=== PATIENT | male | born 1970 | race Caucasian/White ===

== ENCOUNTER 2020-09-15 16:47 | Emergency (ER) | payer MEDICAID, OTHER ==
[~2020-09-15] VITALS: Ht 180.3 cm; Wt 74.8 kg
[2020-09-15 16:47] VITALS: BP 125/83
[2020-09-15] MEDS ORDERED: ASPirin 81 mg TAB PO ONE (17:15)
[2020-09-15 19:25] LABS: Basophils # (auto) 0 10 ^3/uL (0-0.2); Basophils % (auto) 0.7 % (0.0-2.0); Eosinophils # (auto) 0.2 10 ^3/uL (0-0.8); Eosinophils % (auto) 3.6 % (0.0-7.0); Hematocrit 41.2 % (41.0-53.0); Hemoglobin 13.9 g/dL (13.5-17.5); Lymphocytes # (auto) 1.4 10 ^3/uL (0.4-5.4); Lymphocytes % (auto) 26.3 % (10.0-50.0); Mean Corpuscular Hemoglobin 30.2 pg (28.0-32.0); Mean Corpuscular Hgb Conc. 33.8 g/dL (32.0-36.0); Mean Corpuscular Volume 89.4 fL (80.0-100.0); Monocytes # (auto) 0.5 10 ^3/uL (0-1.3); Monocytes % (auto) 9.7 % (0.0-12.0); Neutrophils # (auto) 3.3 10 ^3/uL (1.6-8.6); Neutrophils % (auto) 59.7 % (37.0-80.0); Red Blood Cells 4.61 10^6/uL (4.5-5.90); White Blood Cell 5.5 10^3/uL (4.4-10.8)
[2020-09-15 19:43] LABS: Albumin 3.9 g/dL (3.4-5.0); Anion Gap 2 (5-15); Blood Urea Nitrogen 23 mg/dL (7-18); Calcium 8.9 mg/dL (8.5-10.1); Carbon Dioxide 29 mmol/L (21-32); Chloride 108 mmol/L (98-107); Glucose 73 mg/dL (74-106); Potassium 4.4 mmol/L (3.5-5.1); Sodium 139 mmol/L (136-145)
[2020-09-15 19:49] LABS: Alanine Aminotransferase 26 U/L (16-61); Alkaline Phosphatase 50 U/L (45-117); Aspartate Aminotransferase 21 U/L (15-37); BUN/Creatinine Ratio 20.5; Bilirubin, Total 1.4 mg/dL (0.2-1.0); GFR African American 89 mL/min; GFR Non-African American 74 mL/min; Total Protein 7.4 g/dL (6.4-8.2)
== END 2020-09-15 20:33 | disposition home or self-care (01) ==
LOC: ER 16:47
DX: R07.89 Other chest pain (principal)
CPT/HCPCS: 36415; 71046; 80053; 84484; 85025; 85379; 93005

== ENCOUNTER 2021-06-24 18:38 | Emergency (ER) | payer MEDICAID ==
[~2021-06-24] VITALS: Ht 180.3 cm; Wt 74.8 kg
[2021-06-24 20:57] VITALS: BP 129/90
== END 2021-06-24 21:21 | disposition home or self-care (01) ==
LOC: ER 18:39
DX: S83.92XA Sprain of unspecified site of left knee, initial encounter (principal); J45.909 Unspecified asthma, uncomplicated; L21.8 Other seborrheic dermatitis; M71.38 Other bursal cyst, other site; F17.210 Nicotine dependence, cigarettes, uncomplicated; Z76.0 Encounter for issue of repeat prescription; Z86.2 Personal history of diseases of the blood and blood-forming organs and certain disorders involving the immune mechanism; X50.1XXA Overexertion from prolonged static or awkward postures, initial encounter; Y93.89 Activity, other specified; Y92.89 Other specified places as the place of occurrence of the external cause; Y99.8 Other external cause status
CPT/HCPCS: 29505; 73562

== ENCOUNTER 2022-05-15 19:32 | Emergency (ER) | payer MEDICAID ==
[~2022-05-15] VITALS: Ht 180.3 cm; Wt 75.0 kg
[2022-05-15] MEDS ORDERED: CYCL-837 PO (23:12)
[2022-05-15] MEDS ORDERED: ERY05OO OP (23:12)
[2022-05-15] MEDS ORDERED: IBUP800T27 PO (23:12)
[2022-05-15 23:15] VITALS: BP 140/99
[2022-05-15] MEDS ORDERED: KETOROLAC TROMETH 60MG/2ML VIAL IM ONE (23:15)
== END 2022-05-15 23:26 | disposition home or self-care (01) ==
LOC: ER 19:33
DX: H10.9 Unspecified conjunctivitis (principal); M54.50 Low back pain, unspecified; J45.909 Unspecified asthma, uncomplicated; F17.210 Nicotine dependence, cigarettes, uncomplicated; Z79.2 Long term (current) use of antibiotics; Z79.899 Other long term (current) drug therapy
CPT/HCPCS: 96372; 99283; J1885

== ENCOUNTER 2022-07-26 01:25 | Emergency (ER) | payer MEDICAID ==
[~2022-07-26] VITALS: Ht 180.3 cm; Wt 76.5 kg
[~2022-07-26 01:25] MED LIST: CYCL-837 PO; ERY05OO OP; IBUP800T27 PO
[2022-07-26] MEDS ORDERED: BENZOCAINE (DENTAL) 20 % SPRAY 60ML MT ONE (02:45)
[2022-07-26] MEDS ORDERED: IBUP800T27 PO (02:47)
[2022-07-26] MEDS ORDERED: MOXI0.5S EACHEYE (02:47)
[2022-07-26] MEDS ORDERED: AMOX-277 PO (02:47)
[2022-07-26 02:58] VITALS: BP 136/99
== END 2022-07-26 03:02 | disposition home or self-care (01) ==
LOC: ER 01:25
DX: K04.7 Periapical abscess without sinus (principal); H10.33 Unspecified acute conjunctivitis, bilateral; J45.909 Unspecified asthma, uncomplicated; Z87.442 Personal history of urinary calculi; Z88.1 Allergy status to other antibiotic agents

== ENCOUNTER 2023-11-08 14:07 | Emergency (ER) | payer MEDICAID ==
[~2023-11-08] VITALS: Ht 180.3 cm; Wt 73.6 kg
[~2023-11-08 14:07] MED LIST changes: +AMOX875T4 PO; +IBUP-1456 PO; -IBUP800T27 PO; +MOXI0.5S EACHEYE
[2023-11-08 14:52] VITALS: BP 142/85; PULSE 79; RESP 18; TEMP 97.8; O2SAT 96
[2023-11-08] MEDS ORDERED: NEOM0.1O7 OP (15:37)
== END 2023-11-08 15:55 | disposition home or self-care (01) ==
LOC: ER 14:07
DX: H01.006 Unspecified blepharitis left eye, unspecified eyelid (principal); J45.909 Unspecified asthma, uncomplicated; F17.210 Nicotine dependence, cigarettes, uncomplicated; Z87.442 Personal history of urinary calculi

== ENCOUNTER 2024-08-04 22:21 | Emergency (ER) | payer MEDICAID ==
[~2024-08-04] VITALS: Ht 180.3 cm; Wt 75.0 kg
[~2024-08-04 22:21] MED LIST changes: +NEOM0.1O7 OP
--- NOTE | 2024-08-04 23:42 | ED.PDOC ---
SOB-HPI HPI Comments This is a 54-year-old male asthmatic patient presents to the ED chief complaint increase in wheezing and cough over the past 2 days. Patient states he usually uses his albuterol inhaler however has run out does not have an appointment with his PCP until tomorrow. Patient states increasing wheezing and mucus production. Denies fevers, chills, difficulty breathing, chest pain, shortness of breath. Chief Complaint: Cough Time Seen by MD: 22:37 Primary Care Provider: NONE Reviewed notes: Nurses Notes, Medications, Allergies Information Source: Patient Mode of Arrival: Ambulatory Past Medical History PAST MEDICAL HISTORY: Asthma, Kidney Stones Surgical History: Denies all surgeries Family History Family History: Unknown Social History Smoker: Cigarettes, Less Than 1 Pack/Day Alcohol: Denies ETOH Use Drugs: Marijuana Lives In: Home Constitutional: denies: chills, diaphoresis, fatigue, fever, malaise, sweats, weakness, others EENTM: denies: blurred vision, double vision, ear bleeding, ear discharge, ear drainage, ear pain, ear ringing, eye pain, eye redness, hearing loss, mouth pain, mouth swelling, nasal discharge, nose bleeding, nose congestion, nose pain, photophobia, tearing, throat pain, throat swelling, voice changes, others Respiratory: reports: cough, wheezing; denies: hemoptysis, orthopnea, SOB at rest, shortness of breath, SOB with excertion, stridor, others Cardiovascular: denies: chest pain, dizzy spells, diaphoresis, Dyspnea on exertion, edema, irregular heart beat, left arm pain, lightheadedness, palpitati ons, PND, syncope, others Genitourinary: denies: burning, dysuria, flank pain, frequency, hematuria, incontinence, penile discharge, penile sore, pain, testicle pain, testicle swelling, urgency, others Neurological: denies: dizziness, fainting, headache, left sided numbness, left sided weakness, numbness, paresthesia, pre-existing deficit, right sided numbness, right sided weakness, seizure, speech problems, tingling, tremors, weakness, others Musculoskeletal: denies: back pain, gout, joint pain, joint swelling, muscle pain, muscle stiffness, neck pain, others Integumetry: denies: bruises, change in color, change in hair/nails, dryness, laceration, lesions, lumps, rash, wounds, others Allergic/Immunocompromised: denies: Difficulty Healing, Frequent Infections, Hives, Itching, others Hematologic/Lymphatic: denies: anemia, blood clots, easy bleeding, easy bruising, swollen glands, others Endocrine: denies: excessive hunger, excessive sweating, excessive thirst, excessive urination, flushing, intolerance to cold, intolerance to heat, unexplained weight gain, unexplained weight loss, others Psychiatric: denies: anxiety, bipolar disorder, depression, hopeless, panic disorder, schizophrenia, sleepless, suicidal, others Physical Exam General Appearance: No Apparent Distress, Normal HEENT: Normal ENT Inspection, Pharynx Normal, TMs Normal Neck: Full Range of Motion, Non-Tender Respiratory: Chest Non-Tender, Expiration (Bilateral lower lobes), No Accessory Muscle Use, No Respiratory Distress, Wheezing Cardiovascular: No Edema, No JVD, No Murmur, No Gallop, Normal Peripheral Pulses, Regular Rate/Rhythm Breast Exam: Deferred Gastrointestinal: No Organomegaly, Non Tender, No Pulsatile Mass, Normal Bowel Sounds, Soft Genitalia: Deferred Pelvic: Deferred Rectal: Deferred Extremities: Normal capillary refill, Normal inspection, Normal range of motion, Non-tender, No pedal edema Musculoskeletal : Apperance: Normal Neurologic: Alert, insurance counsel II-XII nml as Tested, No Motor Deficits, Normal Affect, Normal Mood, No Sensory Deficits Cerebellar Function: Normal Reflexes: Normal Skin: Dry, Normal Color, Warm Lymphatic: No Adenopathy Was a procedure done? Was a procedure done?: No Differential Dx Differential Diagnosis: Asthma X-Ray, Labs, Meds, VS Vital Signs Date Time Temp Pulse Resp B/P (MAP) Pulse Ox O2 Delivery O2 Flow Rate FiO2 08/04/24 22:40 98.1 84 16 128/78 (95) 95 Current Medications Medications (Trade) Dose Ordered Sig/Patricia Route Start Time Stop Time Status Last Admin Albuterol (Ventolin Medneb) 2.5 mg ONCE ONCE NEB 08/04/24 23:30 08/04/24 23:31 DC 08/04/24 23:46 Ipratropium [place] (Atrovent Medneb) 0.5 mg ONCE ONCE NEB 08/04/24 23:30 08/04/24 23:31 DC 08/04/24 23:46 Dexamethasone Sodium Phosphate (Decadron Injection) 10 mg ONCE ONCE IM 08/04/24 23:30 08/04/24 23:31 DC 08/04/24 23:43 X-Ray, Labs, Meds, VS Comment Atrovent and Ventolin x1 neb treatment. Patient tolerated well with good results lung sounds clear equal in the bilateral. Patient requesting discharge at this time. Script albuterol, Tessalon Perles, and Z-Carlos Eduardo. Advised to follow up with his PCP tomorrow for further refills. ER return precautions given patient indicated understanding agrees with discharge plan of care. Time of 1ST Reevaluation: 00:09 Reevaluation 1ST: Improved Patient Education/Counseling: Diagnosis, Treatment, Prognosis, Need For Follow Up Family Education/Counseling: No Family Present Departure 1 Departure Time of Disposition: 00:09 Impression: Primary Impression: Asthma Qualified Codes: J45.40 - Moderate persistent asthma, uncomplicated Additional Impression: Medication refill Disposition: HOME / SELF CARE / HOMELESS Condition: Stable e-Prescriptions Benzonatate (Benzonatate) 100 Mg Cap 1-2 CAP PO Q4HR PRN for 10 Days, #40 CAP Prov: ZEESHAN LUO 08/05/24 Albuterol Sulfate (VENTOLIN MDI) 90 Mcg Ih 180 MCG IN Q6HP PRN for 30 Days, #1 INHALER Prov: ZEESHAN LUO 08/05/24 Azithromycin (Azithromycin) 250 Mg Tab 250 MG PO DAILY MDD 500 for 5 Days, #6 TAB 0 Refills 2 TABLETS ORALLY ON DAY ONE, THEN 1 TABLET ORALLY DAILY FOR 4 DAYS Prov: ZEESHAN LUO 08/05/24 Discharged With: Self Critical Care Note Critical Care Time?: No Stability Stability form required: No Heart Score Heart Score: Heart Score Response (Comments) Value History N/A 0 EKG N/A 0 Age 45-64 1 Risk Factors N/A 0 Troponin N/A 0 Total 1 ZEESHAN LUO Aug 04, 2024 23:42
[2024-08-04] MEDS: DexAMETHasone SOD PHOS 10MG/1ML VIAL INJ IM ONE (23:43)
[2024-08-04] MEDS: ALBUTEROL SULF 2.5 MG/0.5ML(0.5%) NEB SOLN NEB ONE (23:46)
[2024-08-04] MEDS: IPRATROPIUM BROM 0.5 MG/2.5ML INH SOL NEB ONE (23:46)
[2024-08-05] MEDS ORDERED: AZIT-43 PO (00:11)
[2024-08-05] MEDS ORDERED: BENZ100C97 PO (00:11)
[2024-08-05] MEDS ORDERED: ALBUAER3 IN (00:11)
[2024-08-05 00:15] VITALS: BP 125/85; PULSE 79; RESP 18; TEMP 98.1; O2SAT 96
== END 2024-08-05 00:40 | disposition home or self-care (01) ==
LOC: ER 22:21
DX: J45.909 Unspecified asthma, uncomplicated (principal); F17.210 Nicotine dependence, cigarettes, uncomplicated; Z76.0 Encounter for issue of repeat prescription
CPT/HCPCS: 94640; 96372; 99283; J1100

== ENCOUNTER 2024-11-01 14:29 | Emergency (ER) | payer MEDICAID ==
[~2024-11-01] VITALS: Ht 175.3 cm; Wt 71.7 kg
[~2024-11-01 14:29] MED LIST changes: +AZIT-43 PO
[2024-11-01] MEDS: IPRATROPIUM BROM 0.5 MG/2.5ML INH SOL NEB ONE (15:13)
[2024-11-01] MEDS: ALBUTEROL SULF 2.5 MG/0.5ML(0.5%) NEB SOLN NEB ONE (15:13)
--- NOTE | 2024-11-01 15:22 | DVH ---
XY CHEST PORTABLE, HISTORY: R chest pain cough sob COMPARISON: None None TECHNICAL DATA: 1 view of the chest was obtained. FINDINGS: Lines and tubes: None Cardiomediastinal silhouette: normal Pulmonary vasculature: normal Lung expansion: normal Lung airspace: normal Lung interstitium: normal Pleura: normal Pneumothorax: no Bones: Unremarkable Other: no IMPRESSION: No acute intrathoracic abnormality.
[2024-11-01] MEDS: methylPREDNISolone SOD SUCC 125 MG/2 ML VL IV ONE (15:23)
[2024-11-01] MEDS: KETOROLAC TROMETH 30 MG/ML 1ML VIAL IV ONE (15:23)
[2024-11-01 15:25] LABS: Basophils # (auto) 0.1 10 ^3/uL (0-0.2); Basophils % (auto) 0.9 % (0.0-2.0); Eosinophils # (auto) 0.2 10 ^3/uL (0-0.8); Eosinophils % (auto) 2.8 % (0.0-7.0); Lymphocytes # (auto) 1.1 10 ^3/uL (0.4-5.4); Lymphocytes % (auto) 18.6 % (10.0-50.0); Mean Corpuscular Hemoglobin 29.2 pg (28.0-32.0); Mean Corpuscular Hgb Conc. 33.4 g/dL (32.0-36.0); Mean Corpuscular Volume 87.3 fL (80.0-100.0); Monocytes # (auto) 0.4 10 ^3/uL (0-1.3); Monocytes % (auto) 7.7 % (0.0-12.0); Nucleated Red Blood Cells % 0.1 %; Platelet Count (auto) 172 10^3/uL (140-450); Red Blood Cells 5.15 10^6/uL (4.5-5.90); Red Cell Distribution Width 14.1 % (11.8-14.3); White Blood Cell 5.7 10^3/uL (4.4-10.8)
[2024-11-01 15:26] VITALS: PULSE 85; RESP 17; O2SAT 96
[2024-11-01 15:28] LABS: Potassium 3.6 mmol/L (3.5-5.1); Sodium 142 mmol/L (136-145)
[2024-11-01 15:29] LABS: Anion Gap 7 (5-15); Calcium 9.8 mg/dL (8.7-10.4); Carbon Dioxide 25 mmol/L (20-31); Chloride 110 mmol/L (98-107)
[2024-11-01 15:34] LABS: BUN/Creatinine Ratio 14.8 (10.0-20.0); Blood Urea Nitrogen 20 mg/dL (9-23); Glucose 125 mg/dL (74-106)
--- NOTE | 2024-11-01 15:34 | ED.PDOC ---
SOB-HPI HPI Comments 54-year-old male brought in by self complaining of productive cough, chest congestion, chills and fatigue for the last 2-3 days, associated with right- sided achy chest pain. He denies any fever, nausea, vomiting, diaphoresis or edema. Denies any sick contacts. Chief Complaint: Chest Pain Time Seen by MD: 14:33 Primary Care Provider: NONE Reviewed notes: Nurses Notes, Medications, Allergies Information Source: Patient Mode of Arrival: Ambulatory Severity: Moderate Timing: Days Duration: Since onset, Days Context: At Rest, Spontaneous Onset PE Risk Factors: None History of: Asthma Associated Signs and Symptoms: Cough Quality: Aching Radiation: No Radiation Location: Chest (R) If cough with SOB: Non-Productive Past Medical History PAST MEDICAL HISTORY: Asthma, HTN Past Medical History (Other): Recently diagnosed MS Surgical History: Denies all surgeries Family History Family History: Reviewed,noncontributory to illness, Unknown Social History Smoker: Cigarettes, Less Than 1 Pack/Day Alcohol: Denies ETOH Use Drugs: Denies Drug Use Lives In: Home All Other Systems: Reviewed and Negative (Comprehensive systems review obtained and negative except for what is stated in the HPI.) Physical Exam General Appearance: No Apparent Distress HEENT: PERRL/EOMI Neck: Full Range of Motion, Normal Inspection Respiratory: Lungs Clear, No Accessory Muscle Use, No Respiratory Distress, Normal Breath Sounds Cardiovascular: No Edema, No JVD, Regular Rate/Rhythm Breast Exam: Deferred Gastrointestinal: Non Tender, Soft Genitalia: Deferred Pelvic: Deferred Rectal: Deferred Extremities: Normal inspection, Normal range of motion, Non-tender, No pedal edema Neurologic: Alert (Oriented x4), Normal Affect, Normal Mood, Other (Ambulatory. No gross focal deficit.) Cerebellar Function: NOT DONE Reflexes: NOT DONE Skin: Dry, Normal Color, Warm Lymphatic: NOT DONE EKG EKG : Comments Sinus rhythm, rate 88, normal intervals, normal axis, normal QRS, nonspecific T changes. Was a procedure done? Was a procedure done?: No Differential Dx Differential Diagnosis: Asthma, Bronchitis, CHF, COPD, Pneumonia, URI X-Ray, Labs, Meds, VS Vital Signs Date Time Temp Pulse Resp B/P (MAP) Pulse Ox O2 Delivery O2 Flow Rate FiO2 11/01/24 18:32 98.9 72 18 141/88 (105) 98 98.9 3/7/25 15:41 84 11/01/24 15:27 98 18 96 Room Air 11/01/24 15:27 98.7 98 18 120/86 (97) 96 98.7 11/01/24 15:26 85 17 96 Room Air* 0 21 11/01/24 15:13 22 97 Room Air* 0 21 11/01/24 14:40 88 11/01/24 14:32 98.4 86 18 132/90 (104) 96 Lab Test 11/01/24 15:44 11/01/24 15:13 11/01/24 14:45 11/01/24 14:35 Range/Units Troponin I High Sensitivity < 3 L < 3 L </=54 ng/L Urine Color Yellow Yellow Urine Clarity Clear Clear Urine pH 5.5 5.0-9.0 Urine Specific Moran 1.029 1.001-1.035 Urine Protein Negative Negative Urine Ketones Trace Negative Urine Blood Negative Negative /uL Urine Nitrite Negative Negative Urine Bilirubin Negative Negative Urine Urobilinogen Normal Negative mg/dL Urine Leukocyte Esterase Negative Negative /uL Urine RBC 2 0 - 3 /hpf Urine Microscopic WBC 3 0-3 /HPF Urine Squamous Epithelial Cells Few <5 /hpf Urine Bacteria None seen None Seen /hpf Urine Mucus Few None Seen Urine Glucose Normal Normal mg/dL White Blood Count 5.7 4.4-10.8 10^3/uL Red Blood Count 5.15 4.5-5.90 10^6/uL Hemoglobin 15.0 13.5-17.5 g/dL Hematocrit 45.0 41.0-53.0 % Mean Corpuscular Volume 87.3 80.0-100.0 fL Mean Corpuscular Hemoglobin 29.2 28.0-32.0 pg Mean Corpuscular Hemoglobin Concent 33.4 32.0-36.0 g/dL Red Cell Distribution Width 14.1 11.8-14.3 % Platelet Count 172 140-450 10^3/uL Mean Platelet Volume 9.2 6.9-10.8 fL Neutrophils (%) (Auto) 70.0 37.0-80.0 % Lymphocytes (%) (Auto) 18.6 10.0-50.0 % Monocytes (%) (Auto) 7.7 0.0-12.0 % Eosinophils (%) (Auto) 2.8 0.0-7.0 % Basophils (%) (Auto) 0.9 0.0-2.0 % Neutrophils # (Auto) 4.0 1.6-8.6 10 ^3/uL Lymphocytes # (Auto) 1.1 0.4-5.4 10 ^3/uL Monocytes # (Auto) 0.4 0-1.3 10 ^3/uL Eosinophils # (Auto) 0.2 0-0.8 10 ^3/uL Basophils # (Auto) 0.1 0-0.2 10 ^3/uL Nucleated Red Blood Cells 0.1 % Sodium Level 142 136-145 mmol/L Potassium Level 3.6 3.5-5.1 mmol/L Chloride Level 110 H 98-107 mmol/L Carbon Dioxide Level 25 20-31 mmol/L Anion Gap 7 5-15 Blood Urea Nitrogen 20 9-23 mg/dL Creatinine 1.35 H 0.700-1.30 mg/dL Glomerular Filtration Rate Calc 62 >90 mL/min BUN/Creatinine Ratio 14.8 10.0-20.0 Serum Glucose 125 H 74-106 mg/dL Calcium Level 9.8 8.7-10.4 mg/dL B-Type Natriuretic Peptide 12.93 0-100 pg/mL Influenza Type A Antigen Negative Negative Influenza Type B Antigen Negative Negative SARS-CoV-2 Antigen (Rapid) Negative NEGATIVE Current Medications Medications (Trade) Dose Ordered Sig/Patricia Route Start Time Stop Time Status Last Admin Albuterol (Ventolin Medneb) 5 mg ONCE ONCE NEB 11/01/24 15:00 11/01/24 15:01 DC 11/01/24 15:13 Ipratropium [place] (Atrovent Medneb) 0.5 mg ONCE ONCE NEB 11/01/24 15:00 11/01/24 15:01 DC 11/01/24 15:13 Methylprednisolone Sodium Succinate (Solu Medrol) 125 mg ONCE ONCE IV 11/01/24 15:00 11/01/24 15:01 DC 11/01/24 15:23 Ketorolac Tromethamine (Toradol Injection) 30 mg ONCE ONCE IV 11/01/24 15:00 11/01/24 15:01 DC 11/01/24 15:23 Doxycycline Hyclate 100 ml @ 50 mls/hr ONCE ONCE IV 11/01/24 18:15 11/01/24 19:10 DC 11/01/24 18:29 PROCEDURE(s): CXRP - CHEST PORTABLE REASON: R chest pain cough sob ORDER NUMBER(s): [id number], ACCESSION NUMBER(s): [id number] XY CHEST PORTABLE, HISTORY: R chest pain cough sob COMPARISON: None None TECHNICAL DATA: 1 view of the chest was obtained. FINDINGS: Lines and tubes: None Cardiomediastinal silhouette: normal Pulmonary vasculature: normal Lung expansion: normal Lung airspace: normal Lung interstitium: normal Pleura: normal Pneumothorax: no Bones: Unremarkable Other: no IMPRESSION: No acute intrathoracic abnormality. X-Ray, Labs, Meds, VS Comment 54-year-old male brought in by self complaining of productive cough, chest congestion, chills and fatigue for the last 2-3 days, associated with right- sided achy chest pain Vitals unremarkable Exam unremarkable Rhythm strip independently interpreted by me: Sinus rhythm, rate 86, no ectopy. Chest x-ray IMPRESSION: No acute intrathoracic abnormality. CBC unremarkable, metabolic panel remarkable for creatinine 1.35, BNP normal, troponin negative x2, influenza and COVID negative Patient treated with the following in the ED: Albuterol 5 mg/Atrovent 0.5 mg nebulized, Solu-Medrol 125 mg IV, Toradol 30 mg IV, doxycycline 100 mg IV On re-evaluation, and states pain has improved. Vitals are stable. Oxygen saturation is normal on room air. Hospitalization was considered, however patient had rapid improvement of symptoms with treatment in the ED, and I no longer feel hospitalization is necessary. Patient now appears stable for discharge with close outpatient follow-up with his primary physician. Rx doxycycline, ProAir, prednisone, ibuprofen Time of 1ST Reevaluation: 15:03 Reevaluation 1ST: Unchanged Time of 2ND Reevaluation: 18:29 Reevaluation 2ND: Improved Patient Education/Counseling: Diagnosis, Treatment, Prognosis Family Education/Counseling: Diagnosis, Treatment, Prognosis Departure 1 Departure Time of Disposition: 18:29 Impression: Primary Impression: Acute cough Additional Impressions: Bronchitis Asthma exacerbation Qualified Codes: J45.901 - Unspecified asthma with (acute) exacerbation Disposition: 01 HOME / SELF CARE / HOMELESS Condition: Stable Additional Instructions: Your blood tests including screening tests for heart attack and heart failure were unremarkable. Your chest x-ray was unremarkable. Your EKG was unremarkable. I have prescribed antibiotics for a possible bacterial respiratory infection, oral steroids to decrease lung inflammation, pain medication, and an inhaler refill. Follow-up with your primary doctor in 1-2 days. Return to ER for persistent or worsening symptoms. e-Prescriptions Ibuprofen Micronized (Ibuprofen) 600 Mg Tab 600 MG PO Q6HP PRN, #30 TAB prn fever or pain, take with food Prov: YOSEPH MILLS MD 11/01/24 Albuterol Sulfate (Albuterol Sulfate Hfa) 108 Mcg/Act Aer 2 PUFF IN Q6HP PRN, #1 AER prn difficulty breathing Prov: YOSEPH MILLS MD 11/01/24 Prednisone (Prednisone) 20 Mg Tab 40 MG PO DAILY for 4 Days, #8 MG Prov: YOSEPH MILLS MD 11/01/24 Doxycycline (Monohydrate) (Doxycycline) 100 Mg Tab 100 MG PO BID for 10 Days, #20 TAB Prov: YOSEPH MILLS MD 11/01/24 Discharged With: Self Critical Care Note Critical Care Time?: No Stability Stability form required: No Heart Score Heart Score: Heart Score Response (Comments) Value History Slightly Suspicious 0 EKG Repolarization Disturb 1 Age 45-64 1 Risk Factors 1 or 2 risk factors 1 Troponin Normal limit 0 Total 3 I personally scribed for YOSEPH MILLS MD ([email or web address]) on 11/01/24 at 15:47. Electronically submitted by Se Spears ([email or web address]). YOSEPH MILLS MD Nov 01, 2024 15:34
[2024-11-01 16:02] LABS: COVID19 ANTIGEN SOFIA FIA NEGATIVE (NEGATIVE); Rapid Influenza A Negative (Negative); Rapid Influenza B Negative (Negative)
[2024-11-01 16:16] LABS: Urine Bacteria None Seen /hpf (None Seen)
[2024-11-01 16:32] LABS: Urine Blood Negative /uL (Negative); Urine Clarity Clear (Clear); Urine Color Yellow (Yellow); Urine Mucus FEW (None Seen); Urine Protein, UAD Negative (Negative); Urine Specific Gravity 1.029 (1.001-1.035); Urine Squamous Epithelial Cell FEW /hpf (<5); Urine Urobilinogen Normal (Negative); Urine WBC 3 /HPF (0-3); Urine pH 5.5 (5.0-9.0)
[2024-11-01] MEDS: DOXYCYCLINE 100MG/100ML 100 ML IV ONE (18:29)
[2024-11-01 18:32] VITALS: BP 141/88; PULSE 72; RESP 18; TEMP 98.9; O2SAT 98
[2024-11-01] MEDS ORDERED: PRED20TA2 PO (18:34)
[2024-11-01] MEDS ORDERED: DOXY-346 PO (18:34)
[2024-11-01] MEDS ORDERED: IBUP1TAB5 PO (18:34)
[2024-11-01] MEDS ORDERED: ALBU108A5 IN (18:34)
--- NOTE | 2024-11-03 04:34 | ECG ---
[facility] Test Date: 2024-11-01 Test Time: 14:37:55 Pat Name: RIO GUEVARA Department: er Room: Gender: M Health Counselor: juliana : 1970 Requested By: EMERGENCY EMERGENCY Order Number: [id number] Reading MD: Measurements Intervals [place] Rate: 87 P: 86 MD: 153 QRS: 84 QRSD: 82 T: 92 QT: 346 QTc: 417 Interpretive Statements Sinus rhythm Consider right atrial enlargement Please click the below link to view image of tracing.
== END 2024-11-01 19:09 | disposition home or self-care (01) ==
LOC: ER 14:29
DX: J40 Bronchitis, not specified as acute or chronic (principal); I10 Essential (primary) hypertension; F17.210 Nicotine dependence, cigarettes, uncomplicated; Z20.822 Contact with and (suspected) exposure to COVID-19
CPT/HCPCS: 36415; 71045; 80048; 81001; 83880; 84484; 85025; 87426; 87804; 93005; 94640; 96365; 96375; 99285; J1885; J2919; J3490

== ENCOUNTER 2025-07-05 20:36 | Inpatient (IN) | payer MEDICAID ==
[~2025-07-05] VITALS: Ht 175.3 cm; Wt 75.9 kg
[~2025-07-05 20:36] MED LIST changes: +ALBU108A5 IN; +DOXY-346 PO; +IBUP1TAB5 PO; +PRED20TA2 PO
[2025-07-05 21:20] LABS: Hematocrit 41.4 % (41.0-53.0); Hemoglobin 14.3 g/dL (13.5-17.5); Mean Corpuscular Hemoglobin 30.0 pg (28.0-32.0); Mean Corpuscular Volume 87.1 fL (80.0-100.0); Nucleated Red Blood Cells % 0.1 %
[2025-07-05 21:25] LABS: Alanine Aminotransferase 31 U/L (7-40); Albumin 4.3 g/dL (3.2-4.8); Alkaline Phosphatase 59 U/L (46-116); Anion Gap 8 (5-15); BUN/Creatinine Ratio 8.4 (10.0-20.0); Blood Urea Nitrogen 11 mg/dL (9-23); Calcium 9.2 mg/dL (8.7-10.4); Carbon Dioxide 30 mmol/L (20-31); Glucose 87 mg/dL (74-106); Potassium 3.8 mmol/L (3.5-5.1); Total Protein 7.1 g/dL (5.7-8.2)
[2025-07-05 21:26] LABS: Bilirubin, Total 1.8 mg/dL (0.2-1.0); Chloride 108 mmol/L (98-107); Sodium 146 mmol/L (136-145)
--- NOTE | 2025-07-05 21:40 | DVH ---
EXAM: XY CHEST PORTABLE HISTORY: cp TECHNIQUE: 1 view of the chest COMPARISON: XY CHEST PORTABLE on DOS: 11/01/24 FINDINGS/IMPRESSION: LUNGS: No pleural effusion, consolidation, or pneumothorax. MEDIASTINUM: Unremarkable. BONES: No acute osseous abnormality. OTHER: None.
--- NOTE | 2025-07-05 21:50 | ED.PDOC ---
HPI Comments HPI: 55-year-old male came to ER due to chest pains. Patient has been experiencing right-sided chest pains for the past three weeks. radiating to his right arm. Patient has yet to see a [employer] regarding this issue. Has not had any history of cardiac stress test or angiogram. No alleviating or precipitating factors. 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 HPI: Poor Historian. REVIEW OF SYSTEMS: CONSTITUTIONAL: Denies acute: fever, diaphoresis, chills, generalized weakness. HEAD: Denies acute: headache, photophobia Eyes: Denies acute: Double vision, vision loss, eye pain, eye discharge. EARS: Denies acute: tinnitus, hearing loss, ear discharge, ear pain, THROAT: Denies acute: sore throat, swelling, difficulty swallowing , pain with swallowing, change in voice. NECK: Denies acute: neck pain, neck swelling, stiff neck. HEART: Denies acute : palpitations, LUNGS: Denies acute: SOB, wheezing, cough, hemoptysis ABDOMEN: Denies acute: abdominal pain, Nausea, Vomiting, diarrhea, melena , hematemesis, hematochezia SKIN: Denies acute: rash, redness, lesions, itchiness. EXTREMITIES: Denies acute: calf pain, numbness, tingling, weakness, denies pain in extremity. Denies acute: Low back pain. Neuro: Denies acute: focal neurological deficit, motor or sensory focal neurological deficit, tremors, seizure like activity, confusion, dizziness, change in mental status, loss of bowel or bladder function, cauda equina like symptoms. : Denies acute: dysuria, hematuria, flank pain, increase in urinary frequency. PSYCH: Denies acute: hallucination, suicidal ideation, homicidal ideation. PHYSICAL EXAM: General: ---no-----acute distress, awake and alert. Head: normocephalic, atraumatic. No raccoon's eyes, no story sign. Neck: supple, trachea is midline, no swelling. Throat: Normal phonation. Eyes:, no erythema, no purulent discharge, no proptosis, no icterus. Heart: regular rate, regular rhythm, no significant murmur appreciated. Lungs: no apparent respiratory distress, Able to speak in full sentences. No wheezing, no rhonchi, no crackles. No stridors Clear to auscultation bilaterally. Abdomen: non tender to palpation, non distended, soft, no guarding, no rebound, + bowel sounds. Neuro: Awake, Alert, oriented to name, self, situation, follows commands GCS=15. Speech is normal. Skin: no petechia, no purpura, no cyanosis, non-pale, not jaundice. Lower extremities: --no - Pitting edema no deformity, no focal swelling, no calf TTP. Makes eye contact. moves all four extremities. Face: no apparent facial droop. Ambulating in the ED independently. ED COURSE: DISCLAIMER: This medical document was created using an electronic medical record system with voice recognition software and computerized dictation system. Although this document has been carefully reviewed, there might still be some phonetic and typographical errors. Occasional wrong-word or "sound-alike" substitutions may have occurred due to the inherent limitations of voice recognition software. These areas are purely typographical due to imperfections of the software programs and do not reflect any compromise in the patient's medical care. Please read the chart carefully and recognize, using context, where these substitutions have occurred. Chief Complaint: Chest Pain Time Seen by MD: 21:50 Primary Care Provider: NONE Reviewed Notes: Nurses Notes, Allergies Allergies: Coded Allergies: NO KNOWN ALLERGIES (Unverified , 09/15/20) Home Meds Active Scripts Ibuprofen Micronized (Ibuprofen) 600 Mg Tab, 600 MG PO Q6HP PRN, #30 TAB prn fever or pain, take with food Prov:YOSEPH MILLS MD 11/01/24 Albuterol Sulfate (Albuterol Sulfate Hfa) 108 Mcg/Act Aer, 2 PUFF IN Q6HP PRN, #1 AER prn difficulty breathing Prov:YOSEPH MILLS MD 11/01/24 Prednisone (Prednisone) 20 Mg Tab, 40 MG PO DAILY for 4 Days, #8 MG Prov:YOSEPH MILLS MD 11/01/24 Doxycycline (Monohydrate) (Doxycycline) 100 Mg Tab, 100 MG PO BID for 10 Days, #20 TAB Prov:YOSEPH MILLS MD 11/01/24 Azithromycin (Azithromycin) 250 Mg Tab, 250 MG PO DAILY MDD 500 for 5 Days, #6 TAB 0 Refills 2 TABLETS ORALLY ON DAY ONE, THEN 1 TABLET ORALLY DAILY FOR 4 DAYS Prov:ZEESHAN LUO COMPUTER RECYCLING WORKER 08/05/24 Blvzmyhq-Gvacpp-Uestospi (Maxitrol) 0.1 % Oin, 0.1 % OP BID for 5 Days, #1 OIN Prov:YUSUF HALLMAN Alfredo COMPUTER RECYCLING WORKER 11/08/23 Moxifloxacin Hydrochloride (MOXEZA) 0.5 % Valorie, 1 DROP EACHEYE BID for 7 Days, #1 BOTTLE 0 Refills Prov:ABE KELLER 07/26/22 Ibuprofen (Ibuprofen) 800 Mg Tab, 1 TAB PO TID PRN, #30 TAB 0 Refills Prov:ABE KELLER 07/26/22 Amoxicillin & Pot Clavulanate (Amoxicillin/Potassium Cla) 875 Mg Tab, 1 TAB PO BID for 7 Days, #14 TAB 0 Refills Prov:ABE KELLER 07/26/22 Erythromycin (Erythromycin) 5 Mg/Gm Oin, 1 STRIP OP QID for 7 Days, #1 OIN 0 Refills 1 cm ribbon into affected eyes 4 times daily Prov:BEVERLEY DANIEL 05/15/22 Cyclobenzaprine Hcl (Cyclobenzaprine Hcl) 5 Mg Tab, 1 TAB PO QPM PRN, #20 TAB 0 Refills Prov:BEVERLEY DANIEL 05/15/22 Ibuprofen (Ibuprofen) 800 Mg Tab, 1 TAB PO Q6HPRN PRN, #30 TAB 0 Refills Prov:BEVERLEY DANIEL 05/15/22 Information Source: Patient Mode of Arrival: Ambulatory Past Medical History PAST MEDICAL HISTORY: Asthma, HTN Surgical History: Denies all surgeries Family History Family History: Reviewed,noncontributory to illness, Unknown Social History Smoker: Cigarettes, Less Than 1 Pack/Day Alcohol: Denies ETOH Use Drugs: Denies Drug Use Lives In: Home Was a procedure done? Was a procedure done?: No CP Differential Dx Differential Diagnosis: N/A Differential Diagnosis: Other (Ddx include but not limitied to gastritis, mu sculoskeletal pain, radiculopathy, atypical chest pain, dissection, aneurysm, ACS, unstable angina, hiatal hernia, GERD, anxiety, costochondritis, PE, pneumothroax, neoplasm, cardiac ischemia, drug abuse, anemia.) X-Ray, Labs, Meds, VS Vital Signs Date Time Temp Pulse Resp B/P (MAP) Pulse Ox O2 Delivery O2 Flow Rate FiO2 07/05/25 22:47 64 20 97 Room Air 07/05/25 22:47 98.1 64 20 93/61 (72) 97 98.1 07/05/25 21:49 65 07/05/25 20:51 63 07/05/25 20:37 98.2 67 16 146/91 99 98.2 Lab Test 07/06/25 01:56 07/05/25 21:45 07/05/25 20:53 Range/Units White Blood Count 6.4 6.0 4.4-10.8 10^3/uL Red Blood Count 4.85 4.75 4.5-5.90 10^6/uL Hemoglobin 14.4 14.3 13.5-17.5 g/dL Hematocrit 42.2 41.4 41.0-53.0 % Mean Corpuscular Volume 86.9 87.1 80.0-100.0 fL Mean Corpuscular Hemoglobin 29.6 30.0 28.0-32.0 pg Mean Corpuscular Hemoglobin Concent 34.0 34.4 32.0-36.0 g/dL Red Cell Distribution Width 14.3 13.9 11.8-14.3 % Platelet Count 178 172 140-450 10^3/uL Mean Platelet Volume 8.8 8.6 6.9-10.8 fL Neutrophils (%) (Auto) 58.5 66.5 37.0-80.0 % Lymphocytes (%) (Auto) 30.6 23.5 10.0-50.0 % Monocytes (%) (Auto) 6.8 7.1 0.0-12.0 % Eosinophils (%) (Auto) 3.2 2.3 0.0-7.0 % Basophils (%) (Auto) 0.9 0.6 0.0-2.0 % Neutrophils # (Auto) 3.7 4.0 1.6-8.6 10 ^3/uL Lymphocytes # (Auto) 1.9 1.4 0.4-5.4 10 ^3/uL Monocytes # (Auto) 0.4 0.4 0-1.3 10 ^3/uL Eosinophils # (Auto) 0.2 0.1 0-0.8 10 ^3/uL Basophils # (Auto) 0.1 0 0-0.2 10 ^3/uL Nucleated Red Blood Cells 0.0 0.1 % Sodium Level 142 146 H 136-145 mmol/L Potassium Level 3.9 3.8 3.5-5.1 mmol/L Chloride Level 111 H 108 H 98-107 mmol/L Carbon Dioxide Level 28 30 20-31 mmol/L Anion Gap 3 L 8 5-15 Blood Urea Nitrogen 11 11 9-23 mg/dL Creatinine 1.25 1.31 H 0.700-1.30 mg/dL Glomerular Filtration Rate Calc 68 64 >90 mL/min BUN/Creatinine Ratio 8.8 L 8.4 L 10.0-20.0 Serum Glucose 101 87 74-106 mg/dL Calcium Level 9.3 9.2 8.7-10.4 mg/dL Total Bilirubin 1.8 H 1.8 H 0.2-1.0 mg/dL Aspartate Amino Transferase (AST) 30 29 13-40 U/L Alanine Aminotransferase (ALT) 33 31 7-40 U/L Alkaline Phosphatase 61 59 46-116 U/L Total Protein 7.5 7.1 5.7-8.2 g/dL Albumin 4.6 4.3 3.2-4.8 g/dL Troponin I High Sensitivity < 3 L < 3 L </=54 ng/L B-Type Natriuretic Peptide 16.69 0-100 pg/mL [address] [address] Ph: [phone] DIAGNOSTIC IMAGING Diagnostic Imaging Report : [id number] Signed PATIENT: RIO GUEVARA ACCT: [id number] UNIT: [id number] : 1970 LOC: ER ROOM / BED: / AGE / SEX: 55 / M ADM STATUS: REG ER SERVICE 47 ORDERING PHYSICIAN: ASHLEY TENORIO DO PROCEDURE(s): CXRP - CHEST PORTABLE REASON: cp ORDER NUMBER(s): [id number], ACCESSION NUMBER(s): [id number] EXAM: XY CHEST PORTABLE HISTORY: cp TECHNIQUE: 1 view of the chest COMPARISON: XY CHEST PORTABLE on DOS: 11/01/24 FINDINGS/IMPRESSION: LUNGS: No pleural effusion, consolidation, or pneumothorax. MEDIASTINUM: Unremarkable. BONES: No acute osseous abnormality. OTHER: None. ATED BY: LISA MORAN MD DICTATED DATE/TIME: 07/05/252137 SIGNED BY: LISA MORAN MD SIGNED DATE/TIME: 07/05/252137 CC: Time of 1ST Reevaluation: 21:47 Reevaluation 1ST: Unchanged Patient Education/Counseling: Diagnosis, Treatment Family Education/Counseling: No Family Present Comments MDM: patient presented with the above HPI.---cardiac--workup was initiated. patient was found with the above mentioned diagnosis. the following medications were ordered: please refer to order lists of meds and tests obtained by myself Dr. Tenorio. Patient ED course and VS have been stabilized. Patient has been reassessed in the ED and remained in a stable condition. Pertinent incidental findings were discussed with the patient and/or family. Patient/family voices understanding and is agreeable with plan. Patient has been observed in the ED adequate length of time to insure improvement/stability. Escalation of care considered: Consideration of escalation to observation or admission Patient was ADMITTED to the medicine team for further evaluation and treatment of their presentation. All the reports of any imaging studies that were ordered by myself were reviewed by myself. SEPSIS Sepsis Screen Date sepsis recognized/suspect: Jul 05, 2025 Time Sepsis recognized/suspect: 2037 Recent Procedure: No On Antibiotic Therapy: No Respiratory Rate >20: No Heart Rate >90: No Temp<36 C (96.8 F) or >38.3 C: No SBP <90 or MAP <65 mmHG: No New Acute Mental Status Change: No Is the patient on CPAP, BIPAP,: No Physician Orders Lens Engraver (07/05/25 ) Chest Portable (07/05/25 20:48) Electrocardigram (07/05/25 20:48) Electrocardigram (07/05/25 21:48) Electrocardigram (07/05/25 23:48) Code Status (07/06/25 00:17) Oxygen Per Hour (07/06/25 00:17) Admit (07/06/25 02:40) Oxygen By Nasal Cannula (07/06/25 02:40) * Cardiology Consult (07/06/25 02:40) Vital Signs Date Time Temp Pulse Resp B/P (MAP) Pulse Ox O2 Delivery O2 Flow Rate FiO2 07/05/25 22:47 64 20 97 Room Air 07/05/25 22:47 98.1 64 20 93/61 (72) 97 98.1 07/05/25 21:49 65 07/05/25 20:51 63 07/05/25 20:37 98.2 67 16 146/91 99 98.2 Laboratory Tests Test 07/05/25 20:53 07/06/25 01:56 White Blood Count 6.0 10^3/uL (4.4-10.8) 6.4 10^3/uL (4.4-10.8) Departure 1 Departure Time of Disposition: 21:54 Impression: Primary Impression: Chest pain Disposition: ADMITTED INPATIENT Admit to: Tele Condition: Guarded Discharged With: Self Critical Care Note Critical Care Time?: No Heart Score Heart Score: Heart Score Response (Comments) Value History Moderate Suspicious 1 EKG Normal 0 Age 45-64 1 Risk Factors No known risk factors 0 Troponin Normal limit 0 Total 2 I personally scribed for ASHLEY TENORIO DO ([email or web address]) on 07/05/25 at 21:50. E lectronically submitted by Blaine Pool ([facility]). I personally scribed for ASHLEY TENORIO DO ([email or web address]) on 07/05/25 at 21:58. Electronically submitted by Blaine Pool ([facility]). ASHLEY TENORIO DO Jul 05, 2025 21:50
[2025-07-05] MEDS: ASPirin-EC 325mg tab PO ONE (22:35)
[2025-07-06] VITALS (7 sets, daily range): BP systolic 101–145; BP diastolic 72–94; PULSE 64–78; RESP 17–19; TEMP 97.8–98.6; O2SAT 94–97
[2025-07-06] MEDS ORDERED: ONDANSETRON HCL 4 MG/2 ML VIAL IV PRN (00:30)
[2025-07-06] MEDS ORDERED: DOCUSATE SOD 100 MG CAP PO PRN (00:30)
[2025-07-06] MEDS ORDERED: ACETAMINOPHEN 325 MG TAB PO PRN (00:30)
[2025-07-06 02:18] LABS: Hematocrit 42.2 % (41.0-53.0); Hemoglobin 14.4 g/dL (13.5-17.5); Mean Corpuscular Hemoglobin 29.6 pg (28.0-32.0); Mean Corpuscular Volume 86.9 fL (80.0-100.0); Nucleated Red Blood Cells % 0.0 %
[2025-07-06 02:30] LABS: Alanine Aminotransferase 33 U/L (7-40); Albumin 4.6 g/dL (3.2-4.8); Alkaline Phosphatase 61 U/L (46-116); Anion Gap 3 (5-15); BUN/Creatinine Ratio 8.8 (10.0-20.0); Blood Urea Nitrogen 11 mg/dL (9-23); Calcium 9.3 mg/dL (8.7-10.4); Carbon Dioxide 28 mmol/L (20-31); Glucose 101 mg/dL (74-106); Potassium 3.9 mmol/L (3.5-5.1); Sodium 142 mmol/L (136-145); Total Protein 7.5 g/dL (5.7-8.2)
[2025-07-06 02:31] LABS: Bilirubin, Total 1.8 mg/dL (0.2-1.0); Chloride 111 mmol/L (98-107)
--- NOTE | 2025-07-06 02:42 | DVHHP2 ---
History of Present Illness Reason for Visit: Acute chest pain History of Present Illness The patient is a 55-year-old male with past medical history of multiple sclerosis, C2-3 stenosis, asthma, and hypertension who presented to [facility] ED with complaint of chest pain for the past 3 weeks. Patient reports that he has been experiencing intermittent right-sided chest pain, radiating to his right arm, rating 6/10 numeric scale, getting worse that prompted this visit. Patient was seen and evaluated in the ED, laboratory data shows WBC 6.0, platelets 172, sodium 146, potassium 3.8, BUN 11, creatinine 1.31, GFR 64, glucose 87, calcium 9.2, BNP 16.69, troponin < 3, total bilirubin 1.8, blood pressure 93/61, heart rate 64, temperature 98.1 F, O2 saturation 97% on room air. Chest x-ray showed no acute cardiopulmonary disease. Please see medication orders section in the computer. On my assessment, patient denied chest pain at this moment, no headache, dizziness, diaphoresis, shortness of breath, no diarrhea, nausea, vomiting, fever, no chills. Patient was admitted for further evaluation and medical management. Past Medical History Asthma, HTN, Multiple sclerosis, C2-3 Stenosis Past Surgical History Denies all surgeries Family History Reviewed, noncontributory to the management of this case. Past Social History The patient lives at home, smokes cigarettes less than 1 pack per day, denies alcohol or illicit drugs abuse. Review of Systems Constitutional: Yes: Weakness; No: Fever, Chills, Sweats, Malaise, Other Eyes: No: Pain, Vision change, Conjunctivae inflammation, Eyelid inflammation, Other, Redness ENT: No: Ear pain, Ear discharge, Nose pain, Nose discharge, Nose congestion, Mouth pain, Mouth swelling, Throat pain, Throat swelling, Other Respiratory: No: Cough, Dry, Shortness of breath, SOB with excertion, Wheezing, Hemoptysis, Pleuritic Pain, Sputum, Wheezing, Other Cardiovascular: Chest Pain; No: Palpitations, Orthopnea, Paroxysmal Noc. Dyspnea, Edema, Lt Headedness, Other Gastrointestinal: No: Nausea, Vomiting, Abdominal Pain, Diarrhea, Constipation, Melena, Hematochezia, Other Genitourinary: No Dysuria, No Frequency, No Incontinence, No Hematuria, No Retention, No Other Musculoskeletal: No: other, neck pain, shoulder pain, arm pain, back pain, hand pain, leg pain, foot pain Skin: No: Rash, Lesions, Jaundice, Bruising, Other Neurological: No: Weakness, Numbness, Incoordination, Change in speech, Confusion, Seizures, Other Allergies: Coded Allergies: NO KNOWN ALLERGIES (Unverified , 09/15/20) Medications Current Medications Medications Dose Ordered Sig/Patricia Route Start Time Stop Time Status Last Admin Dose Admin Aspirin 81 mg DAILY PO 07/06/25 10:00 Sodium Chloride 10 ml Q8HR IV 07/06/25 06:00 Acetaminophen/ Hydrocodone Bitart 1 tab Q4HP PRN PO 07/06/25 00:30 Ondansetron HCl 4 mg Q4HP PRN IV 07/06/25 00:30 Docusate Sodium 100 mg BIDPRN PRN PO 07/06/25 00:30 Acetaminophen 650 mg Q6HP PRN PO 07/06/25 00:30 Exam Vital Signs Vital Signs Date Time Temp Pulse Resp B/P (MAP) Pulse Ox O2 Delivery O2 Flow Rate FiO2 07/05/25 22:47 64 20 97 Room Air 07/05/25 22:47 98.1 93/61 (72) 98.1 General Appearance: Alert, Oriented X3, Cooperative, No acute distress HEENT: Atraumatic, PERRLA, EOMI, Mucous membr. moist/pink Respiratory: Normal air movement Cardiovascular: Regular rate, Normal S1, Normal S2, No murmurs Abdominal: Normal bowel sounds, Soft, No tenderness, No hepatospenomegaly, No masses Extremities: No clubbing, No cyanosis, No edema, Normal pulses, No tenderness/swelling Skin: No rashes, No significant lesion Neuro: Normal speech, Normal tone, Sensation intact, Cranial nerves 3-12 NL, Reflexes 2+, Other (Generalized weakness) Psych/Mental Status: Mental status NL, Mood NL Labs/Xrays Labs Test 07/06/25 01:56 07/05/25 21:45 07/05/25 20:53 Range/Units White Blood Count 6.4 4.4-10.8 10^3/uL Red Blood Count 4.85 4.5-5.90 10^6/uL Hemoglobin 14.4 13.5-17.5 g/dL Hematocrit 42.2 41.0-53.0 % Mean Corpuscular Volume 86.9 80.0-100.0 fL Mean Corpuscular Hemoglobin 29.6 28.0-32.0 pg Mean Corpuscular Hemoglobin Concent 34.0 32.0-36.0 g/dL Red Cell Distribution Width 14.3 11.8-14.3 % Platelet Count 178 140-450 10^3/uL Mean Platelet Volume 8.8 6.9-10.8 fL Neutrophils (%) (Auto) 58.5 37.0-80.0 % Lymphocytes (%) (Auto) 30.6 10.0-50.0 % Monocytes (%) (Auto) 6.8 0.0-12.0 % Eosinophils (%) (Auto) 3.2 0.0-7.0 % Basophils (%) (Auto) 0.9 0.0-2.0 % Neutrophils # (Auto) 3.7 1.6-8.6 10 ^3/uL Lymphocytes # (Auto) 1.9 0.4-5.4 10 ^3/uL Monocytes # (Auto) 0.4 0-1.3 10 ^3/uL Eosinophils # (Auto) 0.2 0-0.8 10 ^3/uL Basophils # (Auto) 0.1 0-0.2 10 ^3/uL Nucleated Red Blood Cells 0.0 % Sodium Level 142 136-145 mmol/L Potassium Level 3.9 3.5-5.1 mmol/L Chloride Level 111 H 98-107 mmol/L Carbon Dioxide Level 28 20-31 mmol/L Anion Gap 3 L 5-15 Blood Urea Nitrogen 11 9-23 mg/dL Creatinine 1.25 0.700-1.30 mg/dL Glomerular Filtration Rate Calc 68 >90 mL/min BUN/Creatinine Ratio 8.8 L 10.0-20.0 Serum Glucose 101 74-106 mg/dL Calcium Level 9.3 8.7-10.4 mg/dL Total Bilirubin 1.8 H 0.2-1.0 mg/dL Aspartate Amino Transferase (AST) 30 13-40 U/L Alanine Aminotransferase (ALT) 33 7-40 U/L Alkaline Phosphatase 61 46-116 U/L Total Protein 7.5 5.7-8.2 g/dL Albumin 4.6 3.2-4.8 g/dL Troponin I High Sensitivity < 3 L </=54 ng/L B-Type Natriuretic Peptide 16.69 0-100 pg/mL PATIENT: RIO GUEVARAACCT: [id number] UNIT: [id number] : 1970 LOC: ER ROOM / BED: / AGE / SEX: 55 / M ADM STATUS: REG ER SERVICE 47 ORDERING PHYSICIAN: ASHLEY TENORIO DO PROCEDURE(s): CXRP - CHEST PORTABLE REASON: cp ORDER NUMBER(s): [id number], ACCESSION NUMBER(s): [id number] EXAM: XY CHEST PORTABLE HISTORY: cp TECHNIQUE: 1 view of the chest COMPARISON: XY CHEST PORTABLE on DOS: 11/01/24 FINDINGS/IMPRESSION: LUNGS: No pleural effusion, consolidation, or pneumothorax. MEDIASTINUM: Unremarkable. BONES: No acute osseous abnormality. SEPSIS Sepsis Screen Date sepsis recognized/suspect: Jul 05, 2025 Time Sepsis recognized/suspect: 2248 Recent Procedure: No On Antibiotic Therapy: No Respiratory Rate >20: No Heart Rate >90: No Temp<36 C (96.8 F) or >38.3 C: No SBP <90 or MAP <65 mmHG: No New Acute Mental Status Change: No Is the patient on CPAP, BIPAP,: No Physician Orders Patternmaker Wood (07/05/25 ) Chest Portable (07/05/25 20:48) Electrocardigram (07/05/25 20:48) Electrocardigram (07/05/25 21:48) Electrocardigram (07/05/25 23:48) Aspirin Tablet (07/06/25 10:00) Allergies (07/06/25 00:17) Code Status (07/06/25 00:17) Sodium Chloride Lock (Saline Lock Ns) (07/06/25 06:00) Oxygen Per Hour (07/06/25 00:17) Hydrocodone-Acet 5/325mg Tab ([place] 5/32 (07/06/25 00:30) Ondansetron Hcl (Zofran) (07/06/25 00:30) Docusate Sodium Capsule (Colace Capsule) (07/06/25 00:30) Complete Blood Count (07/07/25 04:00) Comprehensive Metabolic Panel (07/07/25 04:00) Cardiac Diet-2gna,Lofat,Lochol (07/06/25 Breakfast) Condition: Serious (07/06/25 00:17) Acetaminophen Tablet (Tylenol Tablet) (07/06/25 00:30) Bedrest With Bathroom Privileg (07/06/25 00:17) Maintain Bed Rest (07/06/25 00:17) Sequential Compression Device (07/06/25 ) Admit (07/06/25 02:40) Nitroglycerin Sublingual (Ntrostat Subli (07/06/25 02:45) Morphine Sulfate Injection (07/06/25 02:45) Stat Ekg For Chest Pain (07/06/25 02:40) Notify Md Of Changes From Base (07/06/25 02:40) Rv Service Technician For 24 Hours (07/06/25 02:40) Emergency Dysrhythmia Protocol (07/06/25 02:40) Rhythm Strips Once Every Shift (07/06/25 02:40) Oxygen By Nasal Cannula (07/06/25 02:40) * Cardiology Consult (07/06/25 02:40) Vital Signs Date Time Temp Pulse Resp B/P (MAP) Pulse Ox O2 Delivery O2 Flow Rate FiO2 07/05/25 22:47 64 20 97 Room Air 07/05/25 22:47 98.1 64 20 93/61 (72) 97 98.1 07/05/25 21:49 65 07/05/25 20:51 63 07/05/25 20:37 98.2 67 16 146/91 99 98.2 Laboratory Tests Test 07/05/25 20:53 07/06/25 01:56 White Blood Count 6.0 10^3/uL (4.4-10.8) 6.4 10^3/uL (4.4-10.8) Medications Medications Dose Ordered Sig/Patricia Route Start Time Stop Time Status Last Admin Dose Admin Aspirin 325 mg ONCE ONCE PO 07/05/25 22:00 07/05/25 22:01 DC 07/05/25 22:35 325 MG Assessment/Plan Assessment/Plan Acute chest pain Acute renal injury Generalized weakness Plan 1. Admit to telemetry unit 2. Breathing treatment 3. Pain control management 4. Management of fluids and electrolytes 5. Consultation for Cardiology 6. Diagnostic tests chest x-ray 7. DVT prophylaxis-on aspirin 8. Repeat labs CBC, CMP in a.m. 9. Continue with current medical management 10. Treatment plan discussed with patient and RN. Patient verbalized understanding. Plan discussed with: Patient, Other (RN) My Orders Orders - SRINIVASA DE DNP Procedure Category Date Status Time Aspirin Tablet PHA 07/06/25 In Process 10:00 Allergies RAMA 07/06/25 In Process 00:17 Code Status CODE 07/06/25 Transmitted 00:17 Sodium Chloride Lock PHA 07/06/25 In Process (Saline Lock Ns) 06:00 Oxygen Per Hour RT 07/06/25 Transmitted 00:17 Hydrocodone-Acet PHA 07/06/25 In Process 5/325mg Tab ([place] 00:30 Ondansetron Hcl PHA 07/06/25 In Process (Zofran) 00:30 Docusate Sodium PHA 07/06/25 In Process Capsule (Colace 00:30 Complete Blood Count LAB 07/07/25 Verified 04:00 Comprehensive LAB 07/07/25 Verified Metabolic Panel 04:00 Cardiac DIET 07/06/25 Transmitted Diet-2gna,Lofat,Lochol Breakfast Condition: Serious [facility] 07/06/25 In Process 00:17 Acetaminophen Tablet PHA 07/06/25 In Process (Tylenol Tablet) 00:30 Bedrest With Bathroom [facility] 07/06/25 In Process Privileg 00:17 Maintain Bed Rest [facility] 07/06/25 In Process 00:17 Sequential [facility] 07/06/25 In Process Compression Device Admit ADMIT 07/06/25 Verified 02:40 Nitroglycerin [facility] 07/06/25 Verified Sublingual (Ntrostat 02:45 Morphine Sulfate PHA 07/06/25 Verified Injection 02:45 Stat Ekg For Chest [facility] 07/06/25 Verified Pain 02:40 Notify Md Of Changes [facility] 07/06/25 Verified From Base 02:40 Rv Service Technician For [facility] 07/06/25 Verified 24 Hours 02:40 Emergency Dysrhythmia [facility] 07/06/25 Verified Protocol 02:40 Rhythm Strips Once [facility] 07/06/25 Verified Every Shift 02:40 Oxygen By Nasal RT 07/06/25 Verified Cannula 02:40 * Cardiology Consult CONS 07/06/25 Verified 02:40 Problem List: (1) Acute chest pain (2) Acute renal injury (3) Generalized weakness Date of Service: Jul 06, 2025 Billing Provider: SRINIVASA DE DNP Common Visit Codes: [id number] INP/OBS CARE (HIGH) SRINIVASA DE DNP Jul 06, 2025 02:42
[2025-07-06] MEDS ORDERED: MORPHINE SULFATE INJ 2 MG/ml SYRG IV PRN (02:45)
[2025-07-06] MEDS ORDERED: NITROGLYCERIN 0.4 MG SL TAB SL PRN (02:45)
[2025-07-06] MEDS: NICOTINE 14 MG/24HR TOPICAL PATCH TD ONE (06:42)
[2025-07-06] MEDS: SODIUM CHLOR 0.9% PF (SALINE LOCK) 10ML VIAL/SYR IV SCH (08:00)
[2025-07-06] MEDS: HYDROcodone-ACET 5/325MG TAB PO PRN (11:20)
[2025-07-07] VITALS (9 sets, daily range): BP systolic 121–155; BP diastolic 86–99; PULSE 55–80; RESP 16–20; TEMP 97.7–98.4; O2SAT 95–98
--- NOTE | 2025-07-07 13:07 | DVHPN2 ---
Subjective No further chest pain Reviewed: H&P Changes from previous H/P or p: No Changes Eyes: No Pain, No Vision change, No Conjunctivae inflammation, No Eyelid inflammation, No Other, No Redness ENT: No Ear pain, No Ear discharge, No Nose pain, No Nose discharge, No Nose congestion, No Mouth pain, No Mouth swelling, No Throat pain, No Throat swelling, No Other Cardiovascular: Chest Pain; No Palpitations, No Orthopnea, No Paroxysmal Noc. Dyspnea, No Edema, No Lt Headedness, No Other Respiratory: No Cough, No Dry, No Shortness of breath, No SOB with excertion, No Wheezing, No Hemoptysis, No Pleuritic Pain, No Sputum, No Other Gastrointestinal: No Nausea, No Vomiting, No Abdominal Pain, No Diarrhea, No Constipation, No Melena, No Hematochezia, No Other Genitourinary: No Dysuria, No Frequency, No Incontinence, No Hematuria, No Retention, No Other Musculoskeletal: No other, No neck pain, No shoulder pain, No arm pain, No back pain, No hand pain, No leg pain, No foot pain Skin: No Rash, No Lesions, No Jaundice, No Bruising, No Other Objective Vitals Vital Signs Date Time Temp Pulse Resp B/P (MAP) Pulse Ox O2 Delivery O2 Flow Rate FiO2 07/07/25 10:49 76 16 132/92 (105) 95 07/07/25 09:00 98.1 98.1 07/07/25 08:00 Room Air* 0 21 Intake/Output Intake and Output 07/07/25 07:00 Intake Total 900 ml Balance 900 ml Intake Oral 900 ml # Voids 6 # Bowel Movements 1 General Appearance: Alert, Oriented X3 HEENT: Atraumatic Lungs: Clear to auscultation Cardiovascular: Regular rate, Normal S1, Normal S2 Abdomen: Normal bowel sounds Medications Current Medications Medications Dose Ordered Sig/Patricia Route Start Time Stop Time Status Last Admin Dose Admin Aspirin 81 mg DAILY PO 07/06/25 10:00 07/07/25 10:38 81 MG Sodium Chloride 10 ml Q8HR IV 07/06/25 06:00 07/07/25 06:36 10 ML Acetaminophen/ Hydrocodone Bitart 1 tab Q4HP PRN PO 07/06/25 00:30 07/07/25 10:49 1 TAB Ondansetron HCl 4 mg Q4HP PRN IV 07/06/25 00:30 Docusate Sodium 100 mg BIDPRN PRN PO 07/06/25 00:30 Acetaminophen 650 mg Q6HP PRN PO 07/06/25 00:30 Nitroglycerin 0.4 mg Q5MINP PRN SL 07/06/25 02:45 Morphine Sulfate 2 mg Q30M PRN IV 07/06/25 02:45 Nicotine 1 patch DAILY TD 07/08/25 12:00 Laboratory Results Laboratory Tests 07/06/25 01:56 Assessment/Plan Assessment/Plan Acute chest pain Acute renal injury Generalized weakness Troponins negative Echo pending cardiology consult pending Dispo: DC tomorrow Plan discussed with: Patient My Orders Orders - ARNULFO VALDES MD Procedure Category Date Status Time Nicotine 21mg/24hr PHA 07/08/25 In Process (Nicoderm 21mg/24hr) 12:00 Echo 2d Mode Cardiac US 07/07/25 Logged DOP 12:40 Date of Service: Jul 07, 2025 Billing Provider: ARNULFO VALDES MD Common Visit Codes: [id number] INP/OBS CARE(HIGH) ARNULFO VALDES MD Jul 07, 2025 13:07
[2025-07-08 01:00] VITALS: BP 119/80; PULSE 64; RESP 18; TEMP 97.6; O2SAT 95
[2025-07-08 05:00] VITALS: BP 135/76; PULSE 75; RESP 19; TEMP 97.4; O2SAT 95
[2025-07-08 08:00] VITALS: PULSE 48; PULSE 67; RESP 20; O2SAT 96
[2025-07-08 08:50] VITALS: BP 134/80; PULSE 67; RESP 20; TEMP 97.8; O2SAT 95
[2025-07-08] MEDS: NICOTINE 21MG/24 HR TOPICAL PATCH TD SCH (11:08)
--- NOTE | 2025-07-08 11:42 | DVHCONRES ---
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 ED with complaint of chest pain for the past 3 weeks. Patient reports that he has been experiencing intermittent right-sided chest pain, radiating to his right arm, rating 6/10 numeric scale, getting worse that prompted this visit. on arrival to ED EKG showed normal sinus rhythm, no significant ST changes and BNP troponins were within normal limit. PMH: As above PSH: Denies Family history: Reviewed, noncontributory Social history: Lives at home. smokes half pack per day denies alcohol but admits occasional marijuana use Allergies: None Patient seen and examined at the bedside. Patient is currently reported having mild right-sided chest pain which is improved since admission rest of ROS is n egative. Family History: ALS (amyotrophic lateral sclerosis) G8 MOTHER Prostate carcinoma G8 FATHER Allergies: Coded Allergies: NO KNOWN ALLERGIES (Unverified , 09/15/20) Home Meds Active Scripts Ibuprofen Micronized (Ibuprofen) 600 Mg Tab, 600 MG PO Q6HP PRN, #30 TAB prn fever or pain, take with food Prov:YOSEPH MILLS MD 11/01/24 Albuterol Sulfate (Albuterol Sulfate Hfa) 108 Mcg/Act Aer, 2 PUFF IN Q6HP PRN, #1 AER prn difficulty breathing Prov:YOSEPH MILLS MD 11/01/24 Prednisone (Prednisone) 20 Mg Tab, 40 MG PO DAILY for 4 Days, #8 MG Prov:YOSEPH MILLS MD 11/01/24 Doxycycline (Monohydrate) (Doxycycline) 100 Mg Tab, 100 MG PO BID for 10 Days, #20 TAB Prov:YOSEPH MILLS MD 11/01/24 Azithromycin (Azithromycin) 250 Mg Tab, 250 MG PO DAILY MDD 500 for 5 Days, #6 TAB 0 Refills 2 TABLETS ORALLY ON DAY ONE, THEN 1 TABLET ORALLY DAILY FOR 4 DAYS Prov:ZEESHAN LUO 08/05/24 Cfchwyzg-Odmbnh-Lypcjlyv (Maxitrol) 0.1 % Oin, 0.1 % OP BID for 5 Days, #1 OIN Prov:YUSUF TOLBERT MINDI 11/08/23 Moxifloxacin Hydrochloride (MOXEZA) 0.5 % Valorie, 1 DROP EACHEYE BID for 7 Days, #1 BOTTLE 0 Refills Prov:ABE KELLER 07/26/22 Ibuprofen (Ibuprofen) 800 Mg Tab, 1 TAB PO TID PRN, #30 TAB 0 Refills Prov:ABE KELLER 07/26/22 Amoxicillin & Pot Clavulanate (Amoxicillin/Potassium Cla) 875 Mg Tab, 1 TAB PO BID for 7 Days, #14 TAB 0 Refills Prov:ABE KELLER 07/26/22 Erythromycin (Erythromycin) 5 Mg/Gm Oin, 1 STRIP OP QID for 7 Days, #1 OIN 0 Refills 1 cm ribbon into affected eyes 4 times daily Prov:BEVERLEY DANIEL 05/15/22 Cyclobenzaprine Hcl (Cyclobenzaprine Hcl) 5 Mg Tab, 1 TAB PO QPM PRN, #20 TAB 0 Refills Prov:BEVERLEY DANIEL 05/15/22 Ibuprofen (Ibuprofen) 800 Mg Tab, 1 TAB PO Q6HPRN PRN, #30 TAB 0 Refills Prov:BEVERLEY DANIEL 05/15/22 Current Medications Current Medications Medications (Trade) Dose Ordered Sig/Patricia Route PRN Reason Start Time Stop Time Status Last Admin Nicotine (Nicoderm 21MG/ 24HR) 1 patch DAILY TD 07/08/25 12:00 07/08/25 11:08 Vital Signs Vital Signs Date Time Temp Pulse Resp B/P (MAP) Pulse Ox O2 Delivery O2 Flow Rate FiO2 07/08/25 08:50 97.8 67 20 134/80 (98) 95 97.8 07/07/25 20:00 Room Air* 0 21 Physical Exam Pt is lying on bed General Appearance: Alert, Oriented X3, Cooperative, Not in acute distress HEENT: Atraumatic, Mucous membranes moist/pink Respiratory: Clear to auscultation, Normal air movement, No added sounds Cardiovascular: Regular rate, Normal S1, Normal S2, No murmurs Abdominal: Active bowel sounds, Soft, no distention, no tenderness Extremities: No edema, Normal pulses, No tenderness/swelling Skin: No Significant rash, except past surgical scars Neuro: Normal speech, sensorimotor deficits none Psych/Mental Status: Mental status NL, Mood NL Nurse was there as insurance processor during examination Labs/Diagnostic Data Labs Test 07/06/25 01:56 07/05/25 21:45 07/05/25 20:53 Range/Units White Blood Count 6.4 4.4-10.8 10^3/uL Red Blood Count 4.85 4.5-5.90 10^6/uL Hemoglobin 14.4 13.5-17.5 g/dL Hematocrit 42.2 41.0-53.0 % Mean Corpuscular Volume 86.9 80.0-100.0 fL Mean Corpuscular Hemoglobin 29.6 28.0-32.0 pg Mean Corpuscular Hemoglobin Concent 34.0 32.0-36.0 g/dL Red Cell Distribution Width 14.3 11.8-14.3 % Platelet Count 178 140-450 10^3/uL Mean Platelet Volume 8.8 6.9-10.8 fL Neutrophils (%) (Auto) 58.5 37.0-80.0 % Lymphocytes (%) (Auto) 30.6 10.0-50.0 % Monocytes (%) (Auto) 6.8 0.0-12.0 % Eosinophils (%) (Auto) 3.2 0.0-7.0 % Basophils (%) (Auto) 0.9 0.0-2.0 % Neutrophils # (Auto) 3.7 1.6-8.6 10 ^3/uL Lymphocytes # (Auto) 1.9 0.4-5.4 10 ^3/uL Monocytes # (Auto) 0.4 0-1.3 10 ^3/uL Eosinophils # (Auto) 0.2 0-0.8 10 ^3/uL Basophils # (Auto) 0.1 0-0.2 10 ^3/uL Nucleated Red Blood Cells 0.0 % Sodium Level 142 136-145 mmol/L Potassium Level 3.9 3.5-5.1 mmol/L Chloride Level 111 H 98-107 mmol/L Carbon Dioxide Level 28 20-31 mmol/L Anion Gap 3 L 5-15 Blood Urea Nitrogen 11 9-23 mg/dL Creatinine 1.25 0.700-1.30 mg/dL Glomerular Filtration Rate Calc 68 >90 mL/min BUN/Creatinine Ratio 8.8 L 10.0-20.0 Serum Glucose 101 74-106 mg/dL Calcium Level 9.3 8.7-10.4 mg/dL Total Bilirubin 1.8 H 0.2-1.0 mg/dL Aspartate Amino Transferase (AST) 30 13-40 U/L Alanine Aminotransferase (ALT) 33 7-40 U/L Alkaline Phosphatase 61 46-116 U/L Total Protein 7.5 5.7-8.2 g/dL Albumin 4.6 3.2-4.8 g/dL Troponin I High Sensitivity < 3 L </=54 ng/L B-Type Natriuretic Peptide 16.69 0-100 pg/mL Assessment Chest pain likely from costochondritis JEREMY likely due to VMN HX of multiple sclerosis Asthma Hypertension Active smoker Marijuana user Plan/recommendations We will continue with the following plan/recommendations (): EKG normal sinus rhythm, no significant ST-T changes BNP and troponins within normal limits Lipid panel No intervention at this time as the chest pain is likely noncardiac Discussed with the Dr. Paul Plan discussed with: Patient Date of Service: Jul 08, 2025 Billing Provider: LILIAN DOUGLAS Sr., MD Common Visit Codes: [id number] CARE 30-74 MIN ANDRES VALENCIA RESIDENT Jul 08, 2025 11:42
--- NOTE | 2025-07-08 11:50 | ECG ---
[facility] Test Date: 2025-07-05 Test Time: 21:49:07 Pat Name: RIO GUEVARA Department: [facility] ED Room: 0218T A Gender: M Licensed Dispensing Optician: chela : 1970 Requested By: ASHLEY TENORIO Order Number: [id number] Reading MD: John Brown Measurements Intervals [place] Rate: 65 P: 99 TN: 162 QRS: 68 QRSD: 77 T: 69 QT: 401 QTc: 417 Interpretive Statements Sinus rhythm Low voltage, precordial leads Nonspecific T abnormalities, lateral leads Baseline wander in lead(s) I,II,aVR,aVL Electronically Signed On 07-11-2025 15:38:52 PST by John Brown Please click the below link to view image of tracing.
--- NOTE | 2025-07-08 11:50 | ECG ---
[facility] Test Date: 2025-07-05 Test Time: 20:51:23 Pat Name: RIO GUEVARA Department: [facility] ED Room: 0218T A Gender: M Gauge And Instrument Inspector: CHRISTOPHER : 1970 Requested By: ASHLEY TENORIO Order Number: [id number] Reading MD: John Brown Measurements Intervals [place] Rate: 63 P: 76 FL: 162 QRS: 63 QRSD: 79 T: 76 QT: 382 QTc: 392 Interpretive Statements Sinus rhythm Electronically Signed On 07-11-2025 15:38:51 PST by John Brown Please click the below link to view image of tracing.
--- NOTE | 2025-07-08 11:55 | DVHSR ---
APPROVED REPORT EXAM: Two-dimensional and M-mode echocardiogram with Doppler and color Doppler. Blood Pressure: 132/92 mmHg INDICATION Chest Pain RISK FACTORS Height: 5'9", Weight: 164 DIMENSIONS LVDd 4.0 (3.8-5.7cm) LA (2D) 2.9 (1.9-4.0cm) Aortic Root 3.2 (2.0-3.7cm) LVDs 2.7 (2.5-4.0cm) LA (MM) (1.9-4.0cm) Aortic Cusp Exc 1.7 (1.5-2.0cm) EF (%) 63.0 (55-70%) Rt. Atrium 3.2 (1.9-4.0cm) Asc. Aorta cm IVSd 0.9 (0.7-1.1cm) RV (D) 3.5 (1.8-2.4cm) PWd 0.9 (0.7-1.1cm) Mitral Valve Mitral Mitral Stenosis E wave 0.78m/s MV Mean GR. mmHg A wave 0.67m/s MV Peak GR. mmHg E/A ratio 1.2 2D MVA cm2 DECEL Time 158ms PRESS 1/2 Time ms Aortic Valve Aortic Valve Aortic Stenosis V1 0.89m/s AO Mean GR. 3mmHg V2 1.15m/s AO Peak GR. 5mmHg LVOT Diameter 1.9 (1.8-2.4cm) Doppler ISAC 2.19cm2 Pulmonic Valve V2 0.88m/s Other Information Quality : Rhythm : Bradycardia Conclusion lvef 55% mild aortic regurg mild left atrium enlarged
--- NOTE | 2025-07-08 12:34 | DVHDS2 ---
Discharge Summary Date of Admission Jul 06, 2025 at 02:42 Date of Discharge: Jul 08, 2025 Labs/Diagnostic Data: Laboratory Results Test 07/06/25 01:56 07/05/25 21:45 07/05/25 20:53 White Blood Count 6.4 10^3/uL (4.4-10.8) Red Blood Count 4.85 10^6/uL (4.5-5.90) Hemoglobin 14.4 g/dL (13.5-17.5) Hematocrit 42.2 % (41.0-53.0) Mean Corpuscular Volume 86.9 fL (80.0-100.0) Mean Corpuscular Hemoglobin 29.6 pg (28.0-32.0) Mean Corpuscular Hemoglobin Concent 34.0 g/dL (32.0-36.0) Red Cell Distribution Width 14.3 % (11.8-14.3) Platelet Count 178 10^3/uL (140-450) Mean Platelet Volume 8.8 fL (6.9-10.8) Neutrophils (%) (Auto) 58.5 % (37.0-80.0) Lymphocytes (%) (Auto) 30.6 % (10.0-50.0) Monocytes (%) (Auto) 6.8 % (0.0-12.0) Eosinophils (%) (Auto) 3.2 % (0.0-7.0) Basophils (%) (Auto) 0.9 % (0.0-2.0) Neutrophils # (Auto) 3.7 10 ^3/uL (1.6-8.6) Lymphocytes # (Auto) 1.9 10 ^3/uL (0.4-5.4) Monocytes # (Auto) 0.4 10 ^3/uL (0-1.3) Eosinophils # (Auto) 0.2 10 ^3/uL (0-0.8) Basophils # (Auto) 0.1 10 ^3/uL (0-0.2) Nucleated Red Blood Cells 0.0 % Sodium Level 142 mmol/L (136-145) Potassium Level 3.9 mmol/L (3.5-5.1) Chloride Level 111 mmol/L (98-107) Carbon Dioxide Level 28 mmol/L (20-31) Anion Gap 3 (5-15) Blood Urea Nitrogen 11 mg/dL (9-23) Creatinine 1.25 mg/dL (0.700-1.30) Glomerular Filtration Rate Calc 68 mL/min (>90) BUN/Creatinine Ratio 8.8 (10.0-20.0) Serum Glucose 101 mg/dL (74-106) Calcium Level 9.3 mg/dL (8.7-10.4) Total Bilirubin 1.8 mg/dL (0.2-1.0) Aspartate Amino Transferase (AST) 30 U/L (13-40) Alanine Aminotransferase (ALT) 33 U/L (7-40) Alkaline Phosphatase 61 U/L (46-116) Total Protein 7.5 g/dL (5.7-8.2) Albumin 4.6 g/dL (3.2-4.8) Troponin I High Sensitivity < 3 ng/L (</=54) B-Type Natriuretic Peptide 16.69 pg/mL (0-100) Other Laboratory Tests 07/06/25 01:56 Brief Hx & Hospital Course: 55-year-old male with past medical history of multiple sclerosis, 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 Patient reports that he has been experiencing intermittent right-sided chest pain, radiating to his right arm, rating 6/10 numeric scale, getting worse that prompted this visit. Patient was seen and evaluated in the ED, laboratory data shows WBC 6.0, platelets 172, sodium 146, potassium 3.8, BUN 11, creatinine 1.31, GFR 64, glucose 87, calcium 9.2, BNP 16.69, troponin < 3, total bilirubin 1.8, blood pressure 93/61, heart rate 64, temperature 98.1 F, O2 saturation 97% on room air. Chest x-ray showed no acute cardiopulmonary disease. Please see medication orders section in the computer. On my assessment, patient denied chest pain at this moment, no headache, dizziness, diaphoresis, shortness of breath, no diarrhea, nausea, vomiting, fever, no chills. Patient was admitted for further evaluation and medical management. Had chest pain that resolved, echo wnl Condition at Discharge: Good Final Diagnosis/Problems List CHEST PAIN MUSCULOSKELETAL Discharge Disposition: Home Discharge Instruct/Medications Diet: Regular Activity: No Restrictions, As Tolerated Follow Up/Referral: PCP in 7 days Medications: same home medications Scheduled Amoxicillin & Pot Clavulanate (Amoxicillin/Potassium Cla), 1 TAB PO BID Azithromycin (Azithromycin), 250 MG PO DAILY Doxycycline (Monohydrate) (Doxycycline), 100 MG PO BID Erythromycin (Erythromycin), 1 STRIP OP QID Moxifloxacin Hydrochloride (Moxeza), 1 DROP EACHEYE BID Bprxfgrk-Hxtsbg-Dwuzmjnk (Maxitrol), 0.1 % OP BID Prednisone (Prednisone), 40 MG PO DAILY Scheduled PRN Albuterol Sulfate (Albuterol Sulfate Hfa), 2 PUFF IN Q6HP PRN Cyclobenzaprine Hcl (Cyclobenzaprine Hcl), 1 TAB PO QPM PRN Ibuprofen (Ibuprofen), 1 TAB PO Q6HPRN PRN Ibuprofen (Ibuprofen), 1 TAB PO TID PRN Ibuprofen Micronized (Ibuprofen), 600 MG PO Q6HP PRN Discharge Statement: "Patient was advised to return to the ER or call 911 if any headaches, dizziness, shortness of breath, chest pain, abdominal pain, bleeding, fevers, or worsening of medical condition. Patient was counseled about treatment plan, medications, possible side effects, patientverbalized understanding. All questions were answered to the best of my ability. This discharge took greater then 30 minutes in planning, reviewing documentation, counseling the patient, and discussing with other team members." ASSESSMENT ASSESSMENT Assessment CHEST PAIN MUSCULOSKELETAL Date of Service: Jul 08, 2025 Billing Provider: ARNULFO VALDES MD Common Visit Codes: [id number] DISCH DAY >30min ARNULFO VALDES MD Jul 08, 2025 12:34
[2025-07-08 12:47] VITALS: BP 132/88; PULSE 69; RESP 70; TEMP 97.3; O2SAT 97
[2025-07-08 16:40] LABS: Cholesterol 182 mg/dL (< 200); Triglycerides 236 mg/dL (< 150)
[2025-07-08 16:41] LABS: HDL Cholesterol 30 mg/dL (40-59)
--- NOTE | 2025-07-08 16:43 | DVHINCON2 ---
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 Patient reports that he has been experiencing intermittent right-sided chest pain, radiating to his right arm, rating 6/10 numeric scale, getting worse that prompted this visit. On arrival to ED EKG showed normal sinus rhythm, no significant ST changes. BNP troponins were within normal limits. Chest x-ray showed NAD. Patient was admitted to the hospital. I am asked to consult on this patient. Family History: ALS (amyotrophic lateral sclerosis) G8 MOTHER Prostate carcinoma G8 FATHER Allergies: Coded Allergies: NO KNOWN ALLERGIES (Unverified , 09/15/20) Home Meds Active Scripts Ibuprofen Micronized (Ibuprofen) 600 Mg Tab, 600 MG PO Q6HP PRN, #30 TAB prn fever or pain, take with food Prov:YOSEPH MILLS MD 11/01/24 Albuterol Sulfate (Albuterol Sulfate Hfa) 108 Mcg/Act Aer, 2 PUFF IN Q6HP PRN, #1 AER prn difficulty breathing Prov:YOSEPH MILLS MD 11/01/24 Prednisone (Prednisone) 20 Mg Tab, 40 MG PO DAILY for 4 Days, #8 MG Prov:YOSEPH MILLS MD 11/01/24 Doxycycline (Monohydrate) (Doxycycline) 100 Mg Tab, 100 MG PO BID for 10 Days, #20 TAB Prov:YOSEPH MILLS MD 11/01/24 Azithromycin (Azithromycin) 250 Mg Tab, 250 MG PO DAILY MDD 500 for 5 Days, #6 TAB 0 Refills 2 TABLETS ORALLY ON DAY ONE, THEN 1 TABLET ORALLY DAILY FOR 4 DAYS Prov:ZEESHAN LUO CHEMISTRY INSTRUCTOR 08/05/24 Ojvklxgg-Iutere-Pdfuyfbx (Maxitrol) 0.1 % Oin, 0.1 % OP BID for 5 Days, #1 OIN Prov:YUSUF HALLMAN CHEMISTRY INSTRUCTOR 11/08/23 Moxifloxacin Hydrochloride (MOXEZA) 0.5 % Valorie, 1 DROP EACHEYE BID for 7 Days, #1 BOTTLE 0 Refills Prov:ABE KELLER 07/26/22 Ibuprofen (Ibuprofen) 800 Mg Tab, 1 TAB PO TID PRN, #30 TAB 0 Refills Prov:ABE KELLER NINOSKA 07/26/22 Amoxicillin & Pot Clavulanate (Amoxicillin/Potassium Cla) 875 Mg Tab, 1 TAB PO BID for 7 Days, #14 TAB 0 Refills Prov:ABE KELLER NINOSKA 07/26/22 Erythromycin (Erythromycin) 5 Mg/Gm Oin, 1 STRIP OP QID for 7 Days, #1 OIN 0 Refills 1 cm ribbon into affected eyes 4 times daily Prov:JACOB DANIELRA Alfredo XIAO 05/15/22 Cyclobenzaprine Hcl (Cyclobenzaprine Hcl) 5 Mg Tab, 1 TAB PO QPM PRN, #20 TAB 0 Refills Prov:JUDITHKAISEROvidioBEVERLEYRA Alfredo XIAO 05/15/22 Ibuprofen (Ibuprofen) 800 Mg Tab, 1 TAB PO Q6HPRN PRN, #30 TAB 0 Refills Prov:BEVERLEY DANIEL 05/15/22 Current Medications Current Medications Medications (Trade) Dose Ordered Sig/Patricia Route PRN Reason Start Time Stop Time Status Last Admin Nicotine (Nicoderm 21MG/ 24HR) 1 patch DAILY TD 07/08/25 12:00 07/08/25 11:08 Review of Systems CONSTITUTIONAL: Denies acute: fever, diaphoresis, chills, generalized weakness. HEAD: Denies acute: headache, photophobia Eyes: Denies acute: Double vision, vision loss, eye pain, eye discharge. EARS: Denies acute: tinnitus, hearing loss, ear discharge, ear pain, THROAT: Denies acute: sore throat, swelling, difficulty swallowing , pain with swallowing, change in voice. NECK: Denies acute: neck pain, neck swelling, stiff neck. HEART: Denies acute : palpitations, LUNGS: Denies acute: SOB, wheezing, cough, hemoptysis ABDOMEN: Denies acute: abdominal pain, Nausea, Vomiting, diarrhea, melena , hematemesis, hematochezia SKIN: Denies acute: rash, redness, lesions, itchiness. EXTREMITIES: Denies acute: calf pain, numbness, tingling, weakness, denies pain in extremity. Denies acute: Low back pain. Neuro: Denies acute: focal neurological deficit, motor or sensory focal neurological deficit, tremors, seizure like activity, confusion, dizziness, change in mental status, loss of bowel or bladder function, cauda equina like symptoms. : Denies acute: dysuria, hematuria, flank pain, increase in urinary frequency. PSYCH: Denies acute: hallucination, suicidal ideation, homicidal ideation. Vital Signs Vital Signs Date Time Temp Pulse Resp B/P (MAP) Pulse Ox O2 Delivery O2 Flow Rate FiO2 07/08/25 12:47 97.3 69 70 132/88 (103) 97 97.3 07/08/25 08:00 Room Air* 0 21 Physical Exam GENERAL: Alert and oriented x 3. No acute distress. EYES: PERRL, EOMI. Anicteric. HENT: Moist mucous membranes. LUNGS: Clear to auscultation bilaterally. CARDIOVASCULAR: Regular rate and rhythm. ABDOMEN: Soft, nontender and nondistended. EXTREMITIES: No edema. NEUROLOGIC: No focal neurological deficits. SKIN: Warm, dry. Past surgical scars. Labs/Diagnostic Data Labs Test 07/08/25 13:03 07/06/25 01:56 07/05/25 21:45 07/05/25 20:53 Range/Units White Blood Count 6.4 4.4-10.8 10^3/uL Red Blood Count 4.85 4.5-5.90 10^6/uL Hemoglobin 14.4 13.5-17.5 g/dL Hematocrit 42.2 41.0-53.0 % Mean Corpuscular Volume 86.9 80.0-100.0 fL Mean Corpuscular Hemoglobin 29.6 28.0-32.0 pg Mean Corpuscular Hemoglobin Concent 34.0 32.0-36.0 g/dL Red Cell Distribution Width 14.3 11.8-14.3 % Platelet Count 178 140-450 10^3/uL Mean Platelet Volume 8.8 6.9-10.8 fL Neutrophils (%) (Auto) 58.5 37.0-80.0 % Lymphocytes (%) (Auto) 30.6 10.0-50.0 % Monocytes (%) (Auto) 6.8 0.0-12.0 % Eosinophils (%) (Auto) 3.2 0.0-7.0 % Basophils (%) (Auto) 0.9 0.0-2.0 % Neutrophils # (Auto) 3.7 1.6-8.6 10 ^3/uL Lymphocytes # (Auto) 1.9 0.4-5.4 10 ^3/uL Monocytes # (Auto) 0.4 0-1.3 10 ^3/uL Eosinophils # (Auto) 0.2 0-0.8 10 ^3/uL Basophils # (Auto) 0.1 0-0.2 10 ^3/uL Nucleated Red Blood Cells 0.0 % Sodium Level 142 136-145 mmol/L Potassium Level 3.9 3.5-5.1 mmol/L Chloride Level 111 H 98-107 mmol/L Carbon Dioxide Level 28 20-31 mmol/L Anion Gap 3 L 5-15 Blood Urea Nitrogen 11 9-23 mg/dL Creatinine 1.25 0.700-1.30 mg/dL Glomerular Filtration Rate Calc 68 >90 mL/min BUN/Creatinine Ratio 8.8 L 10.0-20.0 Serum Glucose 101 74-106 mg/dL Calcium Level 9.3 8.7-10.4 mg/dL Total Bilirubin 1.8 H 0.2-1.0 mg/dL Aspartate Amino Transferase (AST) 30 13-40 U/L Alanine Aminotransferase (ALT) 33 7-40 U/L Alkaline Phosphatase 61 46-116 U/L Total Protein 7.5 5.7-8.2 g/dL Albumin 4.6 3.2-4.8 g/dL Troponin I High Sensitivity < 3 L </=54 ng/L B-Type Natriuretic Peptide 16.69 0-100 pg/mL Assessment Chest pain likely from costochondritis. JEREMY likely due to VMN. HX of multiple sclerosis. Asthma. Hypertension. Active smoker. Marijuana user. Plan/Recommendation I agree with your ongoing assessment and care of plan. Patient has been seen by Destiny Ramon Resident on my behalf, we have discussed the plan with the patient. EKG normal sinus rhythm, no significant ST-T changes. BNP and troponins within normal limits. Lipid panel. No intervention at this time as the chest pain is likely noncardiac. Additional plan as per the hospital course. Plan discussed with: Patient GAYATHRI MACKAY MD Jul 08, 2025 13:52
== END 2025-07-08 13:30 | disposition home or self-care (01) | DRG 203 ==
LOC: ER 20:36 → OVERFLOW 07-06 02:42 → ER 07-06 07:52 → TELE-CENTR 07-06 21:49
PROVIDERS: ADMIT Hospitalist; ATTEND Hospitalist
DX: M94.0 Chondrocostal junction syndrome [Tietze] (principal); F17.210 Nicotine dependence, cigarettes, uncomplicated; I10 Essential (primary) hypertension; J45.909 Unspecified asthma, uncomplicated; G35.D Multiple sclerosis, unspecified; Z80.42 Family history of malignant neoplasm of prostate
CPT/HCPCS: 36415; 71045; 80053; 80061; 83880; 84484; 85025; 93005; 93306; 99291; G0378